=== PATIENT | male | born 1980 | race Caucasian/White ===

== ENCOUNTER → 2016-12-21 | Day surgery (SDC) | payer OTHER, MEDICAID ==
[~2016-12-21] VITALS: Ht 157.5 cm; Wt 102.1 kg
[~2016-12-21] MED LIST: AMOX250S53; ATOR1TAB21 PO; CIPRODEX OTIC SUSP 7.5ML As Ordered ONE; CIPRODEX OTIC SUSP 7.5ML XX ONE; FISH100049 PO; LIDOCAINE 2% INJ 100 MG/5 ML SDV (FOR ANES.) As Ordered ONE; LR 1,000 ML IV SCH; MIDAZOLAM INJ 2 MG/2 ML VIAL (J2250) As Ordered ONE; ONDANSETRON 4MG/2ML VIAL (J2405) As Ordered ONE; ONDANSETRON 4MG/2ML VIAL (J2405) IV PRN; PERCOCET 5MG/325MG TAB PO PRN; PROPOFOL 200 MG/20 ML VIAL As Ordered ONE; TYLENOL #3 ELIXIR; VICO5TAB; VITA1CAP2 PO; fentaNYL 100 MCG/2 ML INJECTION (J3010) As Ordered ONE; fentaNYL 100 MCG/2 ML INJECTION (J3010) IV PRN
[2016-12-21 15:15] VITALS: BP 127/60
--- NOTE | 2016-12-22 07:33 | RO ---
DATE OF PROCEDURE: 12/21/2016 PREOPERATIVE DIAGNOSIS: Chronic otitis media with effusion. POSTOPERATIVE DIAGNOSIS: Chronic otitis media with effusion. OPERATIVE PROCEDURE: Left tympanostomy, exam under anesthesia (EUA) right ear. SURGEON: Dr. Jorge García PROFILE GRINDER TECHNICIAN: ANESTHESIA: FINDINGS: There was marked angulation of the ear canal and I could not even see the tympanic membrane on the right side. On the left side, I made an incision posteriorly, suctioned fluid, and put in a T tube. The patient tolerated the procedure well. The patient was transferred to the recovery room in excellent condition.
== END | disposition home or self-care (01) ==
LOC: M SDC 10:38
PROVIDERS: ATTEND Otolaryngology
DX: H65.23 Chronic serous otitis media, bilateral (principal); E78.5 Hyperlipidemia, unspecified; L40.8 Other psoriasis; Q90.9 Down syndrome, unspecified; Z79.899 Other long term (current) drug therapy
CPT/HCPCS: 69436; J2250; J2405; J3010

== ENCOUNTER 2018-05-09 08:04 | Day surgery (SDC) | payer OTHER, MEDICAID ==
[2018-05-09 09:20] LABS: BEDSIDE GLUCOSE 166 MG/DL (70-105)
[2018-05-09] MEDS ORDERED: PROPOFOL 200 MG/20 ML VIAL As Ordered (09:21)
[2018-05-09] MEDS: LR 1,000 ML IV (09:22)
[2018-05-09] MEDS ORDERED: fentaNYL 100 MCG/2 ML INJECTION (J3010) As Ordered (09:34)
[2018-05-09] MEDS ORDERED: MIDAZOLAM INJ 2 MG/2 ML VIAL (J2250) As Ordered (09:35)
[2018-05-09] MEDS: CIPRODEX OTIC SUSP 7.5ML As Ordered (10:08)
[2018-05-09] MEDS ORDERED: NALOXONE INJ 0.4 MG/1 ML VIAL (J2310) As Ordered (10:21)
[2018-05-09] MEDS: IBUPROFEN 600 MG TAB PO (11:00)
== END 2018-05-09 11:15 | disposition home or self-care (01) ==
LOC: M SDC 08:04
DX: H65.23 Chronic serous otitis media, bilateral (principal); Q90.9 Down syndrome, unspecified; L40.9 Psoriasis, unspecified; E78.5 Hyperlipidemia, unspecified; R01.1 Cardiac murmur, unspecified; E11.9 Type 2 diabetes mellitus without complications; E55.9 Vitamin D deficiency, unspecified; I45.10 Unspecified right bundle-branch block; R74.8 Abnormal levels of other serum enzymes; M17.0 Bilateral primary osteoarthritis of knee; R06.83 Snoring; Z79.899 Other long term (current) drug therapy; Z79.84 Long term (current) use of oral hypoglycemic drugs
CPT/HCPCS: 69436

== ENCOUNTER → 2020-04-20 | Outpatient (CLI) | payer OTHER, MEDICAID ==
[~2020-04-20] MED LIST changes: -CIPRODEX OTIC SUSP 7.5ML As Ordered ONE; -CIPRODEX OTIC SUSP 7.5ML XX ONE; -LIDOCAINE 2% INJ 100 MG/5 ML SDV (FOR ANES.) As Ordered ONE; -LR 1,000 ML IV SCH; +METF500T13 PO; -MIDAZOLAM INJ 2 MG/2 ML VIAL (J2250) As Ordered ONE; -ONDANSETRON 4MG/2ML VIAL (J2405) As Ordered ONE; -ONDANSETRON 4MG/2ML VIAL (J2405) IV PRN; -PERCOCET 5MG/325MG TAB PO PRN; -PROPOFOL 200 MG/20 ML VIAL As Ordered ONE; +VITA-183 PO; -VITA1CAP2 PO; -fentaNYL 100 MCG/2 ML INJECTION (J3010) As Ordered ONE; -fentaNYL 100 MCG/2 ML INJECTION (J3010) IV PRN
[2020-04-20 18:26] LABS: RHEUMATOID FACTOR QUANT 16.6 IU/ML (<15.0)
[2020-04-21 08:44] LABS: HEPATITIS B SURFACE ANTIBODY NEGATIVE (POSITIVE)
[2020-04-21 08:53] LABS: HEPATITIS B SURFACE ANTIGEN NEGATIVE (NEGATIVE)
[2020-04-21 09:20] LABS: HEPATITIS C VIRUS ABY INDEX 0.1 INDEX (<0.8)
[2020-04-21 09:21] LABS: HEPATITIS B CORE ANTIBODY IGM NEGATIVE (NEGATIVE)
[2020-04-21 09:22] LABS: HIV 1&2 SCREEN CENTAUR NEGATIVE (NEGATIVE)
[2020-04-21 09:23] LABS: HEPATITIS A ANTIBODY IGM NEGATIVE (NEGATIVE)
== END ==
LOC: M LAB 16:08
PROVIDERS: ATTEND Dermatology
DX: L40.9 Psoriasis, unspecified (principal)

== ENCOUNTER → 2021-05-20 | Outpatient (CLI) | payer OTHER ==
--- NOTE | 2021-05-23 19:13 | SLEEPHOME ---
DATE: 05/20/2021 ORDERED BY: FELIX NELSON MD Diagnostic home sleep testing was performed due to concern for the obstructive sleep apnea syndrome. For testing, a nocturnal T3 respiratory monitoring device was used. Continuous record was made of pulse, oxygen saturation, air flow, chest and abdominal strain, and body position. Eleven hours and 59 minutes of data were reviewed. Ten hours were marked as time in bed and during the interval marked time in bed, there were 347 respiratory events identified of 10 seconds in duration or greater for a respiratory event index of 34.7. The events were primarily obstructive, 31 mixed and central apneas were noted. Baseline pulse rate was 48 beats per minute. Pulse rate ranged 34 to 86. Baseline saturation was 95%. Saturations fell to 71%. Testing was performed in both the supine and nonsupine positions. IMPRESSION: Abnormal home sleep testing with repetitive respiratory events and oxygen desaturations to 71% with a respiratory event index of 34.7 is consistent with the obstructive sleep apnea syndrome. RECOMMENDATION: The patient should be encouraged to undergo a formal sleep evaluation.
== END ==
LOC: M SLEEP HO 09:58
PROVIDERS: ATTEND Internal Medicine Cardiovascular Disease
DX: G47.9 Sleep disorder, unspecified (principal)

== ENCOUNTER 2024-01-15 08:05 | Day surgery (SDC) | payer MEDICARE, OTHER, MEDICAID ==
[~2024-01-15] VITALS: Ht 160 cm; Wt 103.3 kg
[~2024-01-15 08:05] MED LIST changes: +APRE30TA3 PO; +ATOR80TA59 PO; +TRUL10IN SC; +VITA100093 PO
[2024-01-15] MEDS: NS 1,000 ML IV ONE (09:00)
[2024-01-15] MEDS ORDERED: propofoL 200 MG/20 ML VIAL As Ordered ONE (10:54)
[2024-01-15 11:21] VITALS: BP 121/57; TEMP 97.7; O2SAT 96
== END 2024-01-15 12:01 | disposition home or self-care (01) ==
LOC: M OPP 08:05
PROVIDERS: ATTEND Internal Medicine Gastroenterology
DX: Z12.11 Encounter for screening for malignant neoplasm of colon (principal); D12.6 Benign neoplasm of colon, unspecified; K64.8 Other hemorrhoids; K64.4 Residual hemorrhoidal skin tags; K57.30 Diverticulosis of large intestine without perforation or abscess without bleeding; G47.30 Sleep apnea, unspecified; Z99.89 Dependence on other enabling machines and devices; E11.9 Type 2 diabetes mellitus without complications; Z79.02 Long term (current) use of antithrombotics/antiplatelets; Z79.85 Long-term (current) use of injectable non-insulin antidiabetic drugs; Z79.899 Other long term (current) drug therapy

== ENCOUNTER → 2025-06-29 | Outpatient (CLI) | payer MEDICARE, OTHER, MEDICAID | LOC: M EKG 13:42 | PROVIDERS: ATTEND Physician Assistant | DX: I49.5 Sick sinus syndrome (principal) ==

== ENCOUNTER → 2025-08-27 | Outpatient (CLI) | payer MEDICARE, OTHER, MEDICAID | LOC: M PLAIMG 09:18 | PROVIDERS: ATTEND Physician Assistant | DX: I34.0 Nonrheumatic mitral (valve) insufficiency (principal) ==